=== PATIENT | female | born 1960 | race Caucasian/White ===

== ENCOUNTER → 2017-09-30 | Outpatient (CLI) | payer OTHER ==
[~2017-09-30] MED LIST: ALBU18HF INH; AZEL205.2 NAS; BUPR150T6 PO; CA C1TAB42 PO; CETI10CA PO; CHOL100015 PO; ESCI10TA PO; GABA300C10 PO; IBUP200C8 PO; KRIL1CAP31 PO; LISI5TAB7 PO; PREN1TAB10 PO; phenylephrine PO
[2017-09-30 15:27] LABS: BASOPHILS # (AUTO) 0.06 x10^3/uL (0-0.1); BASOPHILS % (AUTO) 1 % (0-1); EOSINOPHILS # (AUTO) 0.34 x10^3/uL (0-0.4); EOSINOPHILS % (AUTO) 5 % (1-7); LYMPHOCYTES # (AUTO) 2.71 x10^3/uL (1-3.4); LYMPHOCYTES % (AUTO) 38 % (22-44); MD NO; MEAN CORPUSCULAR HEMOGLOBIN 27.7 pg (27.0-34.8); MEAN CORPUSCULAR HGB CONC 33.2 g/dL (32.4-35.8); MEAN CORPUSCULAR VOLUME 83.6 fL (80-100); MEAN PLATELET VOLUME 7.8 fL (7.4-10.4); MONOCYTES # (AUTO) 0.67 x10^3/uL (0.2-0.8); MONOCYTES % (AUTO) 10 % (2-9); NEUTROPHILS # (AUTO) 3.29 x10^3/uL (1.8-6.8); NEUTROPHILS % (AUTO) 47 % (42-75); PLATELET COUNT 272 x10^3/uL (130-400); RED BLOOD COUNT 4.84 x10^6/uL (3.82-5.3); RED CELL DISTRIBUTION WIDTH 13.9 % (9.6-15.2)
[2017-09-30 15:28] LABS: MICROSCOPIC NOT IND
[2017-09-30 15:31] LABS: INTERNATIONAL NORMALIZED RATIO 0.95 (0.93-1.1); PROTHROMBIN TIME 9.8 Seconds (9.6-11.5)
[2017-09-30 15:35] LABS: ALANINE AMINOTRANSFERASE 66 U/L (12-78); ALBUMIN 3.8 g/dL (3.4-5.0); ANION GAP 8 mmol/L (5-15); CHLORIDE 105 mmol/L (98-107); CREATININE 1.09 mg/dL (0.55-1.02)
[2017-09-30 15:35] LABS: CULTURE INDICATED? NO
[2017-09-30 15:37] LABS: ALKALINE PHOSPHATASE 48 U/L (45-117); BILIRUBIN,TOTAL 0.2 mg/dL (0.2-1.0); TOTAL PROTEIN 7.6 g/dL (6.4-8.2)
== END | disposition home or self-care (01) ==
LOC: STAR 14:00
PROVIDERS: ATTEND Neurological Surgery
DX: Z01.818 Encounter for other preprocedural examination (principal); I10 Essential (primary) hypertension; M51.36 Other intervertebral disc degeneration, lumbar region
CPT/HCPCS: 36415; 71046; 80053; 81003; 85025; 85610; 85730; 93005

== ENCOUNTER 2017-10-09 05:36 | Inpatient (IN) | payer OTHER ==
[~2017-10-09] VITALS: Ht 166.4 cm; Wt 90.0 kg
[2017-10-09] MEDS ORDERED: LACTATED RINGERS 1,000 ML IV SCH (06:05)
[2017-10-09] MEDS ORDERED: BUPIVACAINE/PF 0.5% ONE (06:23)
[2017-10-09] MEDS ORDERED: BACITRACIN 50,000 UNIT ONE (06:23)
[2017-10-09] MEDS ORDERED: EPINEPHRINE 1 MG/ML, 1ML ONE (06:23)
[2017-10-09] MEDS ORDERED: HEPARIN 1,000 UNITS/ML, 30ML ONE (06:23)
[2017-10-09] MEDS ORDERED: THROMBIN 5,000 UNIT VIAL TP ONE (06:23)
[2017-10-09] MEDS ORDERED: BUPIVACAINE 0.25% ONE (06:23)
[2017-10-09] MEDS ORDERED: FENTANYL PF 250 MCG/5ML ONE (06:32)
[2017-10-09] MEDS ORDERED: MIDAZOLAM 1 MG/ML, 2ML ONE (06:32)
[2017-10-09] MEDS ORDERED: PROPOFOL 150 ML ONE (06:33)
[2017-10-09] MEDS ORDERED: CEFAZOLIN 1,000 MG ONE ×2 (06:36)
[2017-10-09] MEDS ORDERED: DEXAMETHASONE 4 MG/ML, 1ML ONE ×2 (06:36)
[2017-10-09] MEDS ORDERED: ROCURONIUM 10MG/ML,5ML ONE (06:36)
[2017-10-09] MEDS ORDERED: FAMOTIDINE 20 MG/2 ML ONE (06:46)
[2017-10-09] MEDS ORDERED: VANCOMYCIN 500 MG ONE (06:59)
[2017-10-09] MEDS ORDERED: VANCOMYCIN 1,000 MG ONE (06:59)
[2017-10-09] MEDS ORDERED: ONDANSETRON 2MG/ML, 2ML ONE (07:15)
[2017-10-09 07:20] LABS: HCG UR SG 1.019 (1.003-1.030)
[2017-10-09] MEDS ORDERED: FENTANYL PF 100 MCG/2ML ONE ×2 (09:49→11:29)
[2017-10-09] MEDS ORDERED: BUPIVACAINE LIPOSOME/PF INFIL ONE (10:12)
[2017-10-09] MEDS ORDERED: OXYcodone 5 MG/5 ML ORAL.SOL UDC PO PRN (10:30)
[2017-10-09] MEDS ORDERED: ALBUTEROL/IPRATROPIUM 2.5MG/0.5MG, 3 ML NPPB PRN (10:30)
[2017-10-09] MEDS ORDERED: DIAZEPAM 5 MG/ML, 2ML IVPush PRN (10:30)
[2017-10-09] MEDS ORDERED: LABETALOL 5MG/ML, 20ML IV PRN (10:30)
[2017-10-09] MEDS ORDERED: ONDANSETRON 2MG/ML, 2ML IVPush PRN ×2 (10:30→11:00)
[2017-10-09] MEDS ORDERED: HYDROmorphone 1 MG/ML, 1ML IV PRN (10:30)
[2017-10-09] MEDS ORDERED: ALBUTEROL SULFATE 2.5 MG/3 ML NPPB PRN ×2 (10:30→11:00)
[2017-10-09] MEDS ORDERED: ACETAMINOPHEN 325 MG TABLET PO PRN ×2 (10:30→11:00)
[2017-10-09] MEDS ORDERED: PROMETHAZINE 12.5 MG SUPP PR PRN (10:30)
[2017-10-09] MEDS ORDERED: FENTANYL PF 100 MCG/2ML IV PRN (10:30)
[2017-10-09] MEDS ORDERED: morphine SULFATE 10 MG/ML, 1ML IV PRN (10:30)
[2017-10-09] MEDS ORDERED: MEPERIDINE/PF 25MG/0.5ML IVPush PRN (10:30)
[2017-10-09] MEDS ORDERED: hydrALAzine 20 MG/ML, 1ML IV PRN (10:30)
[2017-10-09] MEDS ORDERED: HYDROcodone/APAP 10/325 MG TABLET PO PRN (11:00)
[2017-10-09] MEDS ORDERED: PHARMACY MAY ADJ FOR RENAL FX MC PRN (11:00)
[2017-10-09] MEDS: D5%-0.9% NACL+KCL 20MEQ 1,000 ML IV SCH ×2 (11:00→21:51)
[2017-10-09] MEDS ORDERED: HYDROcodone/APAP 5/325 TABLET PO PRN (11:00)
[2017-10-09] MEDS ORDERED: BISACODYL 10 MG SUPP PR PRN (11:00)
[2017-10-09] MEDS ORDERED: morphine SULFATE 10 MG/ML, 1ML IVPush PRN (11:00)
[2017-10-09] MEDS ORDERED: DIPHENHYDRAMINE 50 MG/ML, 1ML IVPush PRN (11:00)
[2017-10-09] MEDS ORDERED: PROMETHAZINE 25 MG/ML, 1ML IM PRN (11:00)
[2017-10-09] MEDS ORDERED: ACETAMINOPHEN 650 MG/20.3 ML UDC ONE (11:29)
[2017-10-09] MEDS ORDERED: OXYcodone 5 MG/5 ML ORAL.SOL UDC ONE (11:29)
[2017-10-09 12:35] VITALS: BP 101/60
[2017-10-09] MEDS: OXYcodone/APAP 5/325MG TABLET PO PRN ×2 (16:31→20:37)
[2017-10-09] MEDS: ERGOCALCIFEROL 50,000 UNIT CAPSULE PO SCH (16:33)
[2017-10-09] MEDS: METHOCARBAMOL 750 MG TABLET PO PRN (18:44)
[2017-10-09 19:01] VITALS: BP 100/64
[2017-10-09] MEDS: GABAPENTIN 300 MG CAPSULE PO SCH (20:37)
[2017-10-09] MEDS: CETIRIZINE 10 MG TABLET PO SCH (21:47)
[2017-10-09] MEDS: SODIUM CHLORIDE FLUSH 10ML SYR IVF SCH (21:51)
[2017-10-09 23:36] VITALS: BP 101/67
[2017-10-10] MEDS: OXYcodone/APAP 5/325MG TABLET PO PRN ×6 (00:40→21:56)
[2017-10-10] MEDS: METHOCARBAMOL 750 MG TABLET PO PRN (02:35)
[2017-10-10 03:53] VITALS: BP 99/61
[2017-10-10] MEDS: ENOXAPARIN 40 MG/0.4 ML SQ SCH (05:54)
[2017-10-10 06:49] VITALS: BP 96/54
[2017-10-10 06:50] VITALS: BP 117/57
[2017-10-10] MEDS: D5%-0.9% NACL+KCL 20MEQ 1,000 ML IV SCH ×2 (07:00→17:00)
[2017-10-10] MEDS: AZELASTINE HCL NAS SCH (08:59)
[2017-10-10] MEDS ORDERED: CETIRIZINE 10 MG TABLET PO SCH (09:00)
[2017-10-10] MEDS: PRENATAL VIT/IRON/FA 1 EACH TABLET PO SCH (09:00)
[2017-10-10] MEDS: ERGOCALCIFEROL 50,000 UNIT CAPSULE PO SCH (09:00)
[2017-10-10] MEDS: CITALOPRAM 20 MG TABLET PO SCH (09:00)
[2017-10-10] MEDS: CALCIUM/VITAMIN D3 250-125 TABLET PO SCH (09:00)
[2017-10-10] MEDS: SODIUM CHLORIDE FLUSH 10ML SYR IVF SCH ×2 (09:00→21:55)
[2017-10-10] MEDS: LISINOPRIL 5 MG TABLET PO SCH (09:00)
[2017-10-10] MEDS: TEMPLATE NON-FORMULARY MED. (Bupropion Hcl** (Bupropion Xl**) 150 MG) PO SCH (09:00)
[2017-10-10] MEDS: GABAPENTIN 300 MG CAPSULE PO SCH ×2 (09:02→21:55)
[2017-10-10] MEDS: SENNA/DOCUSATE TABLET PO PRN (09:05)
[2017-10-10] MEDS: CYCLOBENZAPRINE 10 MG TABLET PO PRN ×2 (10:39→18:42)
[2017-10-10 15:18] VITALS: BP 83/50
[2017-10-10 19:18] VITALS: BP 95/61
[2017-10-10] MEDS: CETIRIZINE 10 MG TABLET PO SCH (21:56)
[2017-10-11 00:26] VITALS: BP 103/66
[2017-10-11] MEDS: OXYcodone/APAP 5/325MG TABLET PO PRN ×5 (01:58→20:05)
[2017-10-11] MEDS: D5%-0.9% NACL+KCL 20MEQ 1,000 ML IV SCH ×2 (03:00→13:00)
[2017-10-11] MEDS: ENOXAPARIN 40 MG/0.4 ML SQ SCH (06:05)
[2017-10-11 07:56] VITALS: BP_SYST 93; BP_SYST 98; BP_DIAS 62; BP_DIAS 64
[2017-10-11] MEDS: LISINOPRIL 5 MG TABLET PO SCH (08:04)
[2017-10-11] MEDS: CALCIUM/VITAMIN D3 250-125 TABLET PO SCH (08:13)
[2017-10-11] MEDS: SODIUM CHLORIDE FLUSH 10ML SYR IVF SCH ×2 (08:13→20:05)
[2017-10-11] MEDS: GABAPENTIN 300 MG CAPSULE PO SCH ×2 (08:13→20:05)
[2017-10-11] MEDS: PRENATAL VIT/IRON/FA 1 EACH TABLET PO SCH (08:13)
[2017-10-11] MEDS: CITALOPRAM 20 MG TABLET PO SCH (08:13)
[2017-10-11] MEDS: TEMPLATE NON-FORMULARY MED. (Bupropion Hcl** (Bupropion Xl**) 150 MG) PO SCH (08:17)
[2017-10-11] MEDS: AZELASTINE HCL NAS SCH (08:17)
[2017-10-11] MEDS: SENNA/DOCUSATE TABLET PO PRN (08:24)
[2017-10-11] MEDS ORDERED: DEXAMETHASONE 4 MG/ML, 1ML IVPush ONE (11:00)
[2017-10-11 13:55] VITALS: BP 113/77
[2017-10-11 14:23] LABS: BASOPHILS # (AUTO) 0.05 x10^3/uL (0-0.1); BASOPHILS % (AUTO) 0 % (0-1); EOSINOPHILS # (AUTO) 0.14 x10^3/uL (0-0.4); EOSINOPHILS % (AUTO) 1 % (1-7); LYMPHOCYTES # (AUTO) 2.19 x10^3/uL (1-3.4); LYMPHOCYTES % (AUTO) 17 % (22-44); MD NO; MEAN CORPUSCULAR HEMOGLOBIN 28.7 pg (27.0-34.8); MEAN CORPUSCULAR HGB CONC 33.5 g/dL (32.4-35.8); MEAN CORPUSCULAR VOLUME 85.5 fL (80-100); MEAN PLATELET VOLUME 7.6 fL (7.4-10.4); MONOCYTES # (AUTO) 1.22 x10^3/uL (0.2-0.8); MONOCYTES % (AUTO) 10 % (2-9); NEUTROPHILS # (AUTO) 9.18 x10^3/uL (1.8-6.8); NEUTROPHILS % (AUTO) 72 % (42-75); PLATELET COUNT 246 x10^3/uL (130-400); RED BLOOD COUNT 4.28 x10^6/uL (3.82-5.3); RED CELL DISTRIBUTION WIDTH 13.9 % (9.6-15.2)
[2017-10-11 14:33] LABS: ANION GAP 8 mmol/L (5-15); CALCIUM 8.6 mg/dL (8.5-10.1); CHLORIDE 99 mmol/L (98-107)
[2017-10-11] MEDS: CYCLOBENZAPRINE 10 MG TABLET PO PRN (17:24)
[2017-10-11 17:36] LABS: MICROSCOPIC INDICATED
[2017-10-11 17:42] LABS: CULTURE INDICATED? NO
[2017-10-11 18:25] VITALS: BP 119/73
[2017-10-11] MEDS: CETIRIZINE 10 MG TABLET PO SCH (20:05)
[2017-10-12 01:45] VITALS: BP 102/63
[2017-10-12] MEDS: ENOXAPARIN 40 MG/0.4 ML SQ SCH (05:40)
[2017-10-12 08:13] VITALS: BP 94/59
[2017-10-12] MEDS: AZELASTINE HCL NAS SCH (08:43)
[2017-10-12] MEDS: TEMPLATE NON-FORMULARY MED. (Bupropion Hcl** (Bupropion Xl**) 150 MG) PO SCH (08:43)
[2017-10-12] MEDS: CYCLOBENZAPRINE 10 MG TABLET PO PRN ×2 (08:44→17:33)
[2017-10-12] MEDS: SENNA/DOCUSATE TABLET PO PRN (08:45)
[2017-10-12] MEDS: CALCIUM/VITAMIN D3 250-125 TABLET PO SCH (08:45)
[2017-10-12] MEDS: CITALOPRAM 20 MG TABLET PO SCH (08:45)
[2017-10-12] MEDS: LISINOPRIL 5 MG TABLET PO SCH (08:45)
[2017-10-12] MEDS: GABAPENTIN 300 MG CAPSULE PO SCH ×2 (08:46→23:15)
[2017-10-12] MEDS: PRENATAL VIT/IRON/FA 1 EACH TABLET PO SCH (08:46)
[2017-10-12] MEDS: SODIUM CHLORIDE FLUSH 10ML SYR IVF SCH ×2 (08:46→23:15)
[2017-10-12] MEDS: OXYcodone/APAP 5/325MG TABLET PO PRN ×4 (09:41→23:28)
[2017-10-12 14:23] VITALS: BP 92/56
[2017-10-12] MEDS: DEXAMETHASONE 4 MG/ML, 1ML IVPush SCH ×2 (14:25→23:15)
[2017-10-12 20:27] VITALS: BP 97/60
[2017-10-12] MEDS: CETIRIZINE 10 MG TABLET PO SCH (23:15)
[2017-10-13] MEDS: CYCLOBENZAPRINE 10 MG TABLET PO PRN (02:44)
[2017-10-13 02:47] VITALS: BP 101/66
[2017-10-13] MEDS: OXYcodone/APAP 5/325MG TABLET PO PRN (03:46)
[2017-10-13] MEDS: DEXAMETHASONE 4 MG/ML, 1ML IVPush SCH (05:48)
[2017-10-13] MEDS: ENOXAPARIN 40 MG/0.4 ML SQ SCH (05:49)
[2017-10-13 07:20] VITALS: BP 115/75
[2017-10-13] MEDS: ERGOCALCIFEROL 50,000 UNIT CAPSULE PO SCH (09:00)
[2017-10-13] MEDS: PRENATAL VIT/IRON/FA 1 EACH TABLET PO SCH (09:00)
[2017-10-13] MEDS: CALCIUM/VITAMIN D3 250-125 TABLET PO SCH (09:00)
[2017-10-13] MEDS: SODIUM CHLORIDE FLUSH 10ML SYR IVF SCH ×2 (09:00→21:39)
[2017-10-13] MEDS: AZELASTINE HCL NAS SCH (09:00)
[2017-10-13] MEDS: TEMPLATE NON-FORMULARY MED. (Bupropion Hcl** (Bupropion Xl**) 150 MG) PO SCH (09:00)
[2017-10-13] MEDS: KETOROLAC 30 MG/1 ML IV PRN ×2 (09:39→17:32)
[2017-10-13] MEDS: DOXYCYCLINE 100MG TABLET PO SCH ×2 (10:45→21:38)
[2017-10-13] MEDS: LISINOPRIL 5 MG TABLET PO SCH (10:45)
[2017-10-13] MEDS: CITALOPRAM 20 MG TABLET PO SCH (10:45)
[2017-10-13] MEDS ORDERED: DEXAMETHASONE 4 MG/ML, 1ML IV ONE (11:30)
[2017-10-13] MEDS ORDERED: ALBUTEROL SULFATE 2.5 MG/3 ML NPPB PRN (11:30)
[2017-10-13 14:22] VITALS: BP 100/65
[2017-10-13] MEDS: GABAPENTIN 300 MG CAPSULE PO SCH ×2 (17:32→21:38)
[2017-10-13] MEDS: DEXAMETHASONE 4 MG/ML, 1ML IV SCH ×2 (17:32→23:30)
[2017-10-13 20:58] VITALS: BP 91/57
[2017-10-13] MEDS: CETIRIZINE 10 MG TABLET PO SCH (21:38)
[2017-10-14 03:13] VITALS: BP 106/68
[2017-10-14] MEDS: DEXAMETHASONE 4 MG/ML, 1ML IV SCH (06:46)
[2017-10-14] MEDS: KETOROLAC 30 MG/1 ML IV PRN (06:46)
[2017-10-14] MEDS: ENOXAPARIN 40 MG/0.4 ML SQ SCH (06:46)
[2017-10-14 08:09] VITALS: BP 104/60
[2017-10-14] MEDS: TEMPLATE NON-FORMULARY MED. (Bupropion Hcl** (Bupropion Xl**) 150 MG) PO SCH (08:38)
[2017-10-14] MEDS: SODIUM CHLORIDE FLUSH 10ML SYR IVF SCH (08:38)
[2017-10-14] MEDS: AZELASTINE HCL NAS SCH (08:39)
[2017-10-14] MEDS: DOXYCYCLINE 100MG TABLET PO SCH (08:39)
[2017-10-14] MEDS: GABAPENTIN 300 MG CAPSULE PO SCH (08:39)
[2017-10-14] MEDS: PRENATAL VIT/IRON/FA 1 EACH TABLET PO SCH (08:39)
[2017-10-14] MEDS: CALCIUM/VITAMIN D3 250-125 TABLET PO SCH (08:39)
[2017-10-14] MEDS: CITALOPRAM 20 MG TABLET PO SCH (08:39)
[2017-10-14] MEDS: LISINOPRIL 5 MG TABLET PO SCH (08:39)
[2017-10-14] MEDS ORDERED: OXYC-302 PO (10:56)
[2017-10-14] MEDS ORDERED: METH750T87 PO (10:57)
[2017-10-14] MEDS ORDERED: DOXY100T PO (10:58)
== END 2017-10-14 11:14 | disposition home or self-care (01) | DRG 460 ==
LOC: ORIP 05:36 → 4NOR 12:18 → DCLOUNGE 10-14 11:14
PROVIDERS: ADMIT Neurological Surgery; ATTEND Neurological Surgery
PROC: 0SB40ZZ Excision of Lumbosacral Disc, Open Approach (ICD-10-PCS; 2017-10-09)
PROC: 4A11X4G Monitoring of Peripheral Nervous Electrical Activity, Intraoperative, External Approach (ICD-10-PCS; 2017-10-09)
PROC: 01NR0ZZ Release Sacral Nerve, Open Approach (ICD-10-PCS; 2017-10-09)
PROC: 01NB0ZZ Release Lumbar Nerve, Open Approach (ICD-10-PCS; 2017-10-09)
PROC: 0SG30A0 Fusion of Lumbosacral Joint with Interbody Fusion Device, Anterior Approach, Anterior Column, Open Approach (ICD-10-PCS; principal; 2017-10-09 07:00)
DX: M51.17 Intervertebral disc disorders with radiculopathy, lumbosacral region (principal); E66.9 Obesity, unspecified; F41.9 Anxiety disorder, unspecified; F32.9 Major depressive disorder, single episode, unspecified; M48.07 Spinal stenosis, lumbosacral region; M43.17 Spondylolisthesis, lumbosacral region; M43.28 Fusion of spine, sacral and sacrococcygeal region; K21.9 Gastro-esophageal reflux disease without esophagitis; J45.909 Unspecified asthma, uncomplicated; Z87.891 Personal history of nicotine dependence; Z81.8 Family history of other mental and behavioral disorders; Z83.3 Family history of diabetes mellitus; Z82.0 Family history of epilepsy and other diseases of the nervous system; Z82.49 Family history of ischemic heart disease and other diseases of the circulatory system; Z84.89 Family history of other specified conditions; Z82.3 Family history of stroke; Z82.61 Family history of arthritis; Z88.2 Allergy status to sulfonamides; Z68.32 Body mass index [BMI] 32.0-32.9, adult
CPT/HCPCS: 36415; 71045; 72100; 72131; 72148; 74018; 80048; 81001; 81025; 85025; 86850; 86900; C1713; C9290; J0171; J0690; J1100; J1644; J1650; J1885; J2250; J2405; J2704; J3010; J3370; J3490; C1762; J7120; S0028

== ENCOUNTER → 2018-12-22 | Outpatient (CLI) | payer OTHER ==
[~2018-12-22] MED LIST changes: +DOXY100T PO; +METH750T87 PO; +OXYC-302 PO
== END | disposition home or self-care (01) ==
LOC: CFH 08:38
PROVIDERS: ATTEND Physician Assistant Surgical
DX: M79.672 Pain in left foot (principal)

== ENCOUNTER → 2019-10-06 | Outpatient (CLI) | payer OTHER ==
[~2019-10-06] MED LIST changes: +ASPI81TA45 PO; +ATOR40TA78 PO; +BECL10.62 INH; +BUPR100T11 PO; +ESTR0.5T PO; +FLUT15.845 NAS; +LIDO700A20 TD; +MONT10TA11 PO; +OMEP40CA42 PO; +PROG100C16 PO; +SUMA50TA4 PO
== END | disposition home or self-care (01) ==
LOC: RAD 16:10
PROVIDERS: ATTEND Nurse Practitioner Family
DX: J06.9 Acute upper respiratory infection, unspecified (principal); R05 Cough
CPT/HCPCS: 71046

== ENCOUNTER → 2020-08-23 | Outpatient (CLI) | payer OTHER ==
[~2020-08-23] MED LIST changes: +BUPR150T22 PO; -BUPR150T6 PO; -ESCI10TA PO; +ESCI10TA97 PO; -MONT10TA11 PO; +MONT10TA17 PO; -OXYC-302 PO; +OXYC1TAB14 PO
== END | disposition home or self-care (01) ==
LOC: CFH 15:46
PROVIDERS: ATTEND Obstetrics & Gynecology
DX: Z12.31 Encounter for screening mammogram for malignant neoplasm of breast (principal)
CPT/HCPCS: 77063; 77067

== ENCOUNTER → 2021-01-26 | Outpatient (CLI) | payer OTHER ==
[~2021-01-26] MED LIST changes: -OMEP40CA42 PO; +OMEP40CA8 PO
== END | disposition home or self-care (01) ==
LOC: CFH 09:04
PROVIDERS: ATTEND Nurse Practitioner Family
DX: Z12.2 Encounter for screening for malignant neoplasm of respiratory organs (principal); Z87.891 Personal history of nicotine dependence
CPT/HCPCS: 71271

== ENCOUNTER 2021-02-27 16:10 | Emergency (ER) | payer OTHER ==
[~2021-02-27] VITALS: Ht 167.6 cm; Wt 79.0 kg
[~2021-02-27 16:10] MED LIST changes: +OXYC1TAB12 PO; -OXYC1TAB14 PO
--- NOTE | 2021-02-27 16:37 | NUR ---
EKG DONE IN TRIAGE.
[2021-02-27 18:05] LABS: BASOPHILS % (AUTO) 1 % (0-1); EOSINOPHILS % (AUTO) 2 % (1-7); LYMPHOCYTES % (AUTO) 28 % (22-44); MEAN CORPUSCULAR HEMOGLOBIN 27.8 pg (27.0-34.8); MEAN CORPUSCULAR HGB CONC 33.5 g/dL (32.4-35.8); MEAN PLATELET VOLUME 7.8 fL (7.4-10.4); MONOCYTES % (AUTO) 8 % (2-9); NEUTROPHILS % (AUTO) 62 % (42-75); PLATELET COUNT 286 x10^3/uL (130-400); RED BLOOD COUNT 5.19 x10^6/uL (3.82-5.3); RED CELL DISTRIBUTION WIDTH 14.2 % (9.6-15.2)
[2021-02-27 18:12] LABS: ALBUMIN 4.2 g/dL (3.4-5.0); ANION GAP 8 mmol/L (5-15); CALCIUM 9.8 mg/dL (8.5-10.1); CHLORIDE 102 mmol/L (98-107)
[2021-02-27 18:17] LABS: BILIRUBIN,TOTAL 0.3 mg/dL (0.2-1.0); CREATININE 1.39 mg/dL (0.55-1.02)
[2021-02-27 18:18] LABS: ALANINE AMINOTRANSFERASE 27 U/L (12-78); ALKALINE PHOSPHATASE 55 U/L (45-117); TOTAL PROTEIN 8.3 g/dL (6.4-8.2); TROPONIN I < 0.015 ng/mL (0.000-0.045)
--- NOTE | 2021-02-27 19:39 | NUR ---
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
[2021-02-27 20:50] VITALS: BP 121/76
== END 2021-02-27 21:01 | disposition home or self-care (01) ==
LOC: ED 19:45
DX: R07.89 Other chest pain (principal); I10 Essential (primary) hypertension; Z20.822 Contact with and (suspected) exposure to COVID-19
CPT/HCPCS: 36415; 71045; 80053; 84484; 85025; 93005; 99285; U0003; U0005